=== PATIENT | male | born 1945 | race Caucasian/White ===

== ENCOUNTER 2021-08-19 09:40 | Day surgery (SDC) | payer MEDICARE ==
[~2021-08-19] VITALS: Ht 180.3 cm; Wt 95.7 kg
[~2021-08-19 09:40] MED LIST: COREG25 MG PO; COZAAR25 MG PO; ELIQUIS5 MG PO; FLOMAX0.4 M1 PO; LIPITOR20 MG PO; LISINOPRIL5 MG PO; LORATADINE10 M3 PO; METOPROL TAR25 M1 PO; OMEPRAZOLE DR40 MG PO; OMEPRAZOLE20 M2 PO; TRIGLIDE160 MG PO; VITAMIN D325 MCG PO; XARELTO15 MG PO; XARELTO20 MG PO; ZINC50 M1 PO
[2021-08-19] MEDS ORDERED: PERCOCET 5/321 COMBO PO (12:26)
[2021-08-19 13:11] VITALS: BP 131/73
== END 2021-08-19 12:56 | disposition home or self-care (01) ==
LOC: ORM 09:40
PROVIDERS: ATTEND Surgery
PROC: 0DJ08ZZ Inspection of Upper Intestinal Tract, Via Natural or Artificial Opening Endoscopic (ICD-10-PCS; principal; 2021-08-19)
PROC: 0JB70ZZ Excision of Back Subcutaneous Tissue and Fascia, Open Approach (ICD-10-PCS; 2021-08-19)
DX: K21.9 Gastro-esophageal reflux disease without esophagitis (principal); J38.7 Other diseases of larynx; K44.9 Diaphragmatic hernia without obstruction or gangrene; D17.1 Benign lipomatous neoplasm of skin and subcutaneous tissue of trunk; I48.91 Unspecified atrial fibrillation; Z79.899 Other long term (current) drug therapy; Z79.01 Long term (current) use of anticoagulants; Z95.810 Presence of automatic (implantable) cardiac defibrillator

== ENCOUNTER 2022-01-24 07:21 | Emergency (ER) | payer MEDICARE ==
[~2022-01-24] VITALS: Ht 180.3 cm; Wt 98.6 kg
[~2022-01-24 07:21] MED LIST changes: +PERCOCET 5/321 COMBO PO
[2022-01-24 07:26] VITALS: BP 119/64
[2022-01-24 07:30] VITALS: BP 89/70
[2022-01-24 07:35] VITALS: BP 120/71
[2022-01-24] MEDS ORDERED: CIPRODEX1 ML OT (07:52)
[2022-01-24 08:00] VITALS: BP 112/62
== END 2022-01-24 08:09 | disposition home or self-care (01) ==
LOC: ED 07:21
DX: H60.92 Unspecified otitis externa, left ear (principal); I10 Essential (primary) hypertension

== ENCOUNTER 2022-04-12 06:28 | Inpatient (IN) | payer MEDICARE ==
[2022-04-12] VITALS (9 sets, daily range): BP systolic 108–161; BP diastolic 64–115
[~2022-04-12] VITALS: Ht 180.3 cm; Wt 93.4 kg
[~2022-04-12 06:28] MED LIST changes: +ASPIRIN325 MG PO; +CBD PO; +CIPRODEX1 ML OT
[2022-04-12 18:29] LABS: ALBUMIN 4.6 g/dL (3.2-5.0); ALKALINE PHOSPHATASE 165 u/l (38-126); ANION GAP 17 (6-22 (CALC)); BUN 15 mg/dL (8-23); BUN/CREATININE RATIO 17 (12-20 (CALC)); CARBON DIOXIDE 27 mmol/l (22-30); CHLORIDE 104 mmol/l (95-108); CREATININE 0.9 mg/dL (0.7-1.3); GFR FOR AFR.AMER. > 60 ML/MIN (>=60 (CALC)); GFR OTHER RACES > 60 ML/MIN (>=60 (CALC)); POTASSIUM 4.6 mmol/l (3.5-5.1); SGOT/AST 117 u/l (19-48); SODIUM 142 mmol/l (137-146); TOTAL PROTEIN 6.9 g/dL (6.3-8.2)
[2022-04-13] VITALS (34 sets, daily range): BP systolic 75–136; BP diastolic 39–114
[2022-04-14] VITALS (23 sets, daily range): BP systolic 94–132; BP diastolic 40–75
[2022-04-14 05:34] LABS: HEMATOCRIT 36.5 % (39.0-50.0); HEMOGLOBIN 11.9 g/dl (14.0-18.0); MEAN CELL VOLUME 91.9 fL CALC (80.0-100.0); MEAN CORPUSCULAR HGB CONC 32.6 g/dL CAL (32.0-36.0); RED BLOOD COUNT 3.97 mill/uL (4.70-6.10); RED CELL DISTRI WIDTH 13.9 % (11.5-15.5)
[2022-04-14 06:04] LABS: ANION GAP 17 (6-22 (CALC)); BUN 34 mg/dL (8-23); BUN/CREATININE RATIO 32 (12-20 (CALC)); CARBON DIOXIDE 22 mmol/l (22-30); CHLORIDE 107 mmol/l (95-108); GFR FOR AFR.AMER. > 60 ML/MIN (>=60 (CALC)); GFR OTHER RACES > 60 ML/MIN (>=60 (CALC)); MAGNESIUM 1.6 mg/dL (1.6-2.3); POTASSIUM 4.7 mmol/l (3.5-5.1); SODIUM 141 mmol/l (137-146)
[2022-04-14 18:01] LABS: C. DIFFICILE TOXIN A&B NEGATIVE (NEGATIVE)
[2022-04-14 23:01] LABS: ALBUMIN 3.7 g/dL (3.2-5.0); ALKALINE PHOSPHATASE 120 u/l (38-126); BILIRUBIN, TOTAL 0.8 mg/dL (0.0-1.4); BUN 31 mg/dL (8-23); BUN/CREATININE RATIO 43 (12-20 (CALC)); CARBON DIOXIDE 22 mmol/l (22-30); CHLORIDE 107 mmol/l (95-108); CREATININE 0.7 mg/dL (0.7-1.3); GFR FOR AFR.AMER. > 60 ML/MIN (>=60 (CALC)); GFR OTHER RACES > 60 ML/MIN (>=60 (CALC)); SGOT/AST 41 u/l (19-48); SODIUM 138 mmol/l (137-146); TOTAL PROTEIN 6.5 g/dL (6.3-8.2)
[2022-04-14 23:04] LABS: ANION GAP 13 (6-22 (CALC)); POTASSIUM 3.6 mmol/l (3.5-5.1)
[2022-04-15] VITALS (40 sets, daily range): BP systolic 36–123; BP diastolic 21–104
[2022-04-15] MEDS ORDERED: CORDARONE/200 MG/TAB PO (11:09)
[2022-04-15] MEDS ORDERED: PERCOCET 5/321 COMBO PO (11:11)
[2022-04-20] MEDS ORDERED: LEVAQUIN750 M1 PO (09:41)
== END 2022-04-15 12:20 | disposition home or self-care (01) | DRG 982 ==
LOC: ORM 06:28 → ICU 12:05 → MS2 12:05 → ORM 12:30 → MS2 12:32 → ICU 04-13 00:23 → MS2 04-13 20:51 → ICU 04-13 20:58
PROVIDERS: ADMIT Surgery; ATTEND Internal Medicine
PROC: 0BQT4ZZ Repair Diaphragm, Percutaneous Endoscopic Approach (ICD-10-PCS; principal; 2022-04-12)
PROC: 0DV44ZZ Restriction of Esophagogastric Junction, Percutaneous Endoscopic Approach (ICD-10-PCS; 2022-04-12)
DX: I97.191 Other postprocedural cardiac functional disturbances following other surgery (principal); I47.20 Ventricular tachycardia, unspecified; I50.22 Chronic systolic (congestive) heart failure; K44.9 Diaphragmatic hernia without obstruction or gangrene; K21.9 Gastro-esophageal reflux disease without esophagitis; I11.0 Hypertensive heart disease with heart failure; E78.5 Hyperlipidemia, unspecified; I48.0 Paroxysmal atrial fibrillation; I49.3 Ventricular premature depolarization; R91.8 Other nonspecific abnormal finding of lung field; Y83.8 Other surgical procedures as the cause of abnormal reaction of the patient, or of later complication, without mention of misadventure at the time of the procedure; Z95.810 Presence of automatic (implantable) cardiac defibrillator; Z79.01 Long term (current) use of anticoagulants
CPT/HCPCS: J0131; J1650; J3475; Q9967

== ENCOUNTER 2022-07-14 06:50 | Day surgery (SDC) | payer MEDICARE ==
[~2022-07-14] VITALS: Ht 180.3 cm; Wt 89.8 kg
[~2022-07-14 06:50] MED LIST changes: +24HR ALLERGY R180 MG PO; +B121000 MC1 PO; +CBD CAPSULE PO; +CORDARONE/200 MG/TAB PO; +LEVAQUIN750 M1 PO
[2022-07-14 10:15] VITALS: BP 134/82
== END 2022-07-14 09:59 | disposition home or self-care (01) ==
LOC: ORM 06:50
PROVIDERS: ATTEND Surgery
PROC: 0JH63WZ Insertion of Totally Implantable Vascular Access Device into Chest Subcutaneous Tissue and Fascia, Percutaneous Approach (ICD-10-PCS; principal; 2022-07-14)
PROC: 02HV33Z Insertion of Infusion Device into Superior Vena Cava, Percutaneous Approach (ICD-10-PCS; 2022-07-14)
DX: C34.32 Malignant neoplasm of lower lobe, left bronchus or lung (principal); C34.11 Malignant neoplasm of upper lobe, right bronchus or lung; I10 Essential (primary) hypertension; I48.91 Unspecified atrial fibrillation; E78.5 Hyperlipidemia, unspecified; Z95.810 Presence of automatic (implantable) cardiac defibrillator; Z79.01 Long term (current) use of anticoagulants
CPT/HCPCS: J0690